=== PATIENT | female | born 1965 | race Two or more races ===

== ENCOUNTER → 2020-11-18 | Outpatient (CLI) | payer OTHER ==
[~2020-11-18] MED LIST: COZAAR100 MG; LASIX20 MG; LIPITOR20 MG; PHOSLO667 M1; PREDNISONE5 MG/DOSE- PO; PROVENTIL S1 ML/5 MG IH; ROCALTROL0.25 MCG; SEPTRA DS TABLE1 TAB PO; SYNTHROID50 MCG; TUSNEL LIQUID3840 ML PO; VITAMIN D400 UNI2; ZITHROMAX500 MG PO
== END | disposition home or self-care (01) ==
LOC: PPH VACUNA
DX: Z23 Encounter for immunization (principal)

== ENCOUNTER 2020-12-09 08:00 | Outpatient (CLI) | payer OTHER | END 2020-12-09 08:30 | disposition home or self-care (01) | LOC: PPH VACUNA 08:00 | DX: Z23 Encounter for immunization (principal) ==

== ENCOUNTER 2021-03-27 12:00 | Outpatient (CLI) | payer OTHER | END 2021-03-27 12:15 | disposition home or self-care (01) | LOC: PPH VACUNA 12:00 | PROVIDERS: ATTEND Emergency Medicine Pediatric Emergency Medicine | DX: Z23 Encounter for immunization (principal) ==